=== PATIENT | male | born 1950 | race Two or more races ===

== ENCOUNTER 2017-05-03 09:37 | Emergency (ER) | payer OTHER ==
[2017-05-03 09:43] VITALS: BP 154/76; PULSE 63; TEMP 97.6; BMI 27.4
--- NOTE | 2017-05-03 11:04 | PDOC ---
History of Present Illness - General Chief Complaint: Cold Symptoms Stated Complaint: COUGH Time Seen by Provider: 05/03/17 10:27 History Source: Patient Exam Limitations: No Limitations - History of Present Illness Initial Comments: 05/03/17 patient came for evaluation of persistent cough, fevers, chills, and phlegm production. States onset was approximately 6 days ago where he had a temperature of 100.5, since that time fevers have resolved. States has persistent moist cough and bringing up yellow phlegm. Was unable to see today but has appointment tomorrow. With the counter medications with some relief. Denies chest pain or palpitations, is using Tylenol for fever and pain relief. Timing/Duration: reports: intermittent Severity: reports: mild Associated Symptoms: reports: cough, fever/chills, nasal congestion Past History - Travel Traveled outside of the country in the last 30 days: No Close contact w/someone who was outside of country & ill: No - Past Medical History Allergies/Adverse Reactions: Allergies Allergy/AdvReac Type Severity Reaction Status Date / Time Penicillins Allergy Verified 05/03/17 09:43 Home Medications: Ambulatory Orders Unobtainable [Unobtainable] 05/03/17 COPD: No - Suicide/Smoking/Psychosocial Hx Smoking History: Never smoked Have you smoked in the past 12 months: No Information on smoking cessation initiated: No Hx Alcohol Use: No Drug/Substance Use Hx: No Substance Use Type: None Review of Systems - Review of Systems Able to Perform ROS?: Yes Is the patient limited Slovenian proficient: Yes Constitutional: Yes: Symptoms Reported, See HPI, Fever, Loss of Appetite, Malaise HEENTM: Yes: Symptoms Reported, See HPI, Nose Congestion Respiratory: Yes: Symptoms reported, See HPI, Cough. No: Orthopnea, Wheezing Cardiac (ROS): No: Symptoms Reported Integumentary: Yes: See HPI. No: Symptoms Reported Neurological: Yes: See HPI. No: Symptoms reported All Other Systems: Reviewed and Negative *Physical Exam - Vital Signs Last Vital Signs Temp Pulse Resp BP Pulse Ox 97.6 F 63 18 154/76 97 05/03/17 09:40 05/03/17 09:40 05/03/17 09:40 05/03/17 09:40 05/03/17 10:34 - Physical Exam General Appearance: Yes: Nourished, Appropriately Dressed. No: Apparent Distress HEENT: positive: [place], Normal ENT Inspection, TMs Normal, Pharynx Normal Neck: positive: Supple. negative: Tender, Lymphadenopathy (R), Lymphadenopathy (L) Respiratory/Chest: positive: Lungs Clear (no wheezing or retractions, no adventitious breath sounds), Normal Breath Sounds. 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 Patient states would rather wait for PMDs visit tomorrow to reevaluate need for antibiotic use as is probable viral infection. Patient will continue using [id number] medications and Tylenol for fever and pain relief. *DC/Admit/Observation/Transfer Diagnosis at time of Disposition: Upper respiratory infection, viral - Discharge Dispostion Disposition: HOME Condition at time of disposition: Stable Admit: No - Referrals Referrals: Jimmie Campbell MD [Primary Care Provider] - - Patient Instructions Printed Discharge Instructions: DI for Acute Bronchitis Additional Instructions: Rest, drink lots of fluids: Teas, water, soups, Pedialyte Saltwater gargles Steamy showers/seem to face break up mucus Avoid contact with others until fevers and cough resolved Lots of handwashing and good hygiene Continue [id number] medications for symptomatic relief Tylenol or Motrin for fever and pain Followup with private physician in one to 2 days as needed Return to emergency department for worsened symptoms, fevers, dehydration - Post Discharge Activity
--- NOTE | 2017-05-08 11:44 | EKG ---
Test Reason : Blood Pressure : / mmHG Vent. Rate : 063 BPM Atrial Rate : 063 BPM P-R Int : 176 ms QRS Dur : 084 ms QT Int : 404 ms P-R-T Axes : 067 042 042 degrees QTc Int : 413 ms NORMAL SINUS RHYTHM NORMAL ECG WHEN COMPARED WITH ECG OF 23-AUG-1999 11:10, NO SIGNIFICANT CHANGE WAS FOUND Confirmed by YOSELIN LAU MD ([id number]) on 05/08/2017 11:44:17 AM Referred By: Confirmed By:YOSELIN LAU MD
== END 2017-05-03 11:38 | disposition home or self-care (01) ==
LOC: JERFT 09:37
DX: J06.9 Acute upper respiratory infection, unspecified (principal); B97.89 Other viral agents as the cause of diseases classified elsewhere
CPT/HCPCS: 71046-TC-FY; 93005; 93010; 99281-25